=== PATIENT | male | born 1950 ===

== ENCOUNTER 2019-06-08 05:25 | Inpatient (IN) | payer MEDICARE, BC ==
[~2019-06-08 05:25] MED LIST: Buffered Lidocaine 1% SYRIN* 1 ML/SYRINGE INTRADERM ONE
[2019-06-08] MEDS ORDERED: Ondansetron ODT TAB* 4 MG PO ONE (06:00)
[2019-06-08] MEDS ORDERED: Lactated Ringers 1000 ML Bag* 1,000 ML IV SCH (06:00)
[2019-06-08] MEDS ORDERED: Dexamethasone TAB* 4 MG PO ONE (06:00)
[2019-06-08] MEDS ORDERED: Famotidine IV* 10 MG/ML 2 ML (20 mg) IV ONE (06:00)
[2019-06-08] MEDS ORDERED: PROCHLORPERAZINE INJ 5 MG/ML 2 ML VIAL IV PRN (06:01)
[2019-06-08] MEDS ORDERED: Naloxone* 0.4 MG/ML 1 ML VIAL IV PRN (06:01)
[2019-06-08] MEDS ORDERED: oxyCODONE TAB* 5 MG TAB PO PRN ×2 (06:01→10:11)
[2019-06-08] MEDS ORDERED: DiMENhydriNATE IV* 50 MG/ML VIAL IV PUSH PRN (06:01)
[2019-06-08] MEDS ORDERED: ceFAZolin 2 GM PREMIX in ORs 2 GM/50 ML BAG ONE (06:20)
[2019-06-08] MEDS ORDERED: Famotidine IV* 10 MG/ML 2 ML (20 mg) ONE (06:44)
[2019-06-08] MEDS ORDERED: Dexamethasone TAB* 4 MG ONE (06:44)
[2019-06-08] MEDS ORDERED: Ondansetron ODT TAB* 4 MG ONE (06:44)
[2019-06-08] MEDS ORDERED: Bacitracin INJECTION* 50,000 UNITS ONE (06:45)
[2019-06-08] MEDS ORDERED: Bupivacaine 0.25% EPI 200,000* 30 ML SDV ONE (06:45)
[2019-06-08] MEDS ORDERED: Rocuronium* 10 MG/ML VIAL ONE (07:11)
[2019-06-08] MEDS ORDERED: fentaNYL* 50 MCG/ML 2 ML VIAL (100 MCG VIAL) ONE ×3 (07:11→10:12)
[2019-06-08] MEDS ORDERED: KETAMINE HCL* 50 MG/ML 10 ML VIAL ONE (07:11)
[2019-06-08] MEDS ORDERED: Midazolam* 1 MG/ML 5 ML VIAL (5 MG) ONE (07:11)
[2019-06-08] MEDS ORDERED: ceFAZolin VIAL(*) VIAL ONE (07:24)
[2019-06-08] MEDS ORDERED: Propofol* 10 MG/ML 20 ML BTL ONE ×2 (07:51→14:25)
[2019-06-08] MEDS ORDERED: Sugammadex * 500 MG/5 ML VIAL IV PUSH ONE (07:51)
[2019-06-08] MEDS ORDERED: Lidocaine 2% PF * 5 ML VIAL ONE ×2 (07:52→14:26)
[2019-06-08] MEDS ORDERED: Acetaminophen IV 1GM/100ML * 100 ML ONE (07:52)
[2019-06-08] MEDS ORDERED: HYDROmorphone INJ1* 1 MG/ML SYRINGE ONE ×2 (08:56→10:46)
[2019-06-08] MEDS ORDERED: hydrALAZINE IV* 20 MG/ML VIAL ONE (09:38)
[2019-06-08] MEDS ORDERED: Labetalol IV* 5 MG/ML 20 ML VIAL ONE (09:38)
[2019-06-08] MEDS ORDERED: Ondansetron INJ* 2 MG/ML VIAL IV PRN (10:11)
[2019-06-08] MEDS ORDERED: Magnesium Hydroxide LIQ* 30 ML UDC PO PRN ×2 (10:11→12:35)
[2019-06-08] MEDS ORDERED: oxyCODONE TAB* 5 MG TAB ONE (10:12)
[2019-06-08] MEDS: fentaNYL* 50 MCG/ML 2 ML VIAL (100 MCG VIAL) IV PRN ×4 (10:13→10:38)
[2019-06-08] MEDS: HYDROmorphone INJ1* 1 MG/ML SYRINGE IV PRN ×2 (10:48→10:53)
[2019-06-08] MEDS ORDERED: ALPRAZolam TAB* 0.5 MG PO PRN (12:20)
[2019-06-08] MEDS ORDERED: Docusate CAP* 100 MG PO PRN (12:35)
[2019-06-08] MEDS ORDERED: Polyethylene Glycol 3350* 17 GM PACKET PO PRN (12:35)
[2019-06-08] MEDS ORDERED: Senna TAB 8.6 mg* TAB PO PRN (12:35)
[2019-06-08] MEDS: Gabapentin CAP(*) 300 MG PO SCH (13:45)
--- NOTE | 2019-06-08 13:49 | CONS ---
CC: Dr. Brennan Zabala; Dr. Jessica Mras * CONSULTATION REPORT: DATE OF CONSULT: 06/08/19 PRIMARY CARE PROVIDER: Dr. Brennan Zabala. REQUESTING PHYSICIAN IN CONSULTATION: Dr. Jessica Mars. ATTENDING PHYSICIAN: Dr. Adalberto Davis (dictated by RANDI Turner). REASON FOR CONSULT: Co-medical management. HISTORY OF PRESENT ILLNESS: Mr. Alcala is a 69-year-old male with a past medical history of hypertension, hyperlipidemia, chronic pain, and history of lumbar surgery May 2018, who [place] [facility] L5-S1 laminotomy, foraminotomy with Dr. Mars. He has seen postoperatively in his surgical room. He complains of low back pain rated at 4/10. He continues to have right lower extremity sciatica pain, which he has had for years. He also complains of a headache, which he has intermittently chronically. PAST MEDICAL HISTORY: 1. Hypertension. 2. Hyperlipidemia. 3. History of headaches. 4. History of vertigo. 5. GERD. 6. Anxiety. 7. Chronic pain. PAST SURGICAL HISTORY: Laminectomy, appendectomy, tonsillectomy. HOME MEDICATIONS: 1. Alprazolam 0.5 mg p.o. once p.r.n. anxiety prior to flying. 2. Atorvastatin 20 mg p.o. at bedtime. 3. Baclofen 10 mg p.o. at bedtime. 4. CBD oil 10 mg p.o. b.i.d. 5. Gabapentin 1200 mg q.a.m. and at 1300 hours, 600 mg at bedtime. 6. Ibuprofen 200 mg p.o. q.a.m. 7. Lisinopril 10 mg p.o. at bedtime. 8. Magnesium 0.25 teaspoons p.o. q.a.m. 9. Mirtazapine 15 mg p.o. at bedtime. 10. Naltrexone 4.5 mg p.o. q.a.m. 11. Omeprazole 20 mg p.o. q.a.m. 12. Ondansetron 4 mg p.o. q.6 hours p.r.n. nausea. 13. Psyllium husk 0.4 g p.o. b.i.d. DRUG ALLERGIES: BACITRACIN, NEOMYCIN, POLYMYXIN, rash; SIMVASTATIN, diarrhea. FAMILY HISTORY: Father at the age of 70 from an GA. Mother at the age of 41 from intestinal cancer. No family history of diabetes mellitus or CVA. SOCIAL HISTORY: The patient quit smoking approximately 25 years ago. Prior to that, he smoked for 10 pack years. He drinks 1 to 2 alcoholic beverages per day. He does not use any illicit drugs. He is retired. He is . In the event that he is unable to make his own medical decisions, he has appointed his , Margarita Alcala to be his surrogate decision maker. REVIEW OF SYSTEMS: A 14-point review of systems has been performed and all the pertinent positives and negatives are in the HPI, all other systems are negative. PHYSICAL EXAM: General: Mr. Alcala is a well-developed, well-nourished, slightly overweight, 69-year-old white male who is sitting up in bed. He appears to be in no acute distress. He moves with very mild discomfort. Breathing comfortably on room air. HEENT: PERRL. EOMI. Visual martin grossly intact. Sclerae are nonicteric without injection. Hearing is grossly intact. Oral mucous membranes are moist. There are no lesions. The pharynx is clear. The tongue is at midline. Palate elevates symmetrically. There is no exudates or erythema in the posterior pharynx. Cardiovascular: Regular rate and rhythm with S1, S2 present without murmurs, rubs, clicks, or gallops. There is no JVD. There is no peripheral edema. Pulmonary: Symmetrical chest expansion without use of accessory muscles. Clear to auscultation bilaterally without rhonchi, wheezes, or rales. Abdomen: Bowel sounds in all quadrants. Soft, nontender to palpation. Musculoskeletal: Full range of motion without pain or deformity. The right lateral lumbar surgical area was clean, dry, and intact; dressing in place. The patient is able to wiggle digits distally. Sensation is equal and intact distally. Neuro: The patient is awake. He is alert and oriented x3 with cranial nerves II through XII grossly intact. ASSESSMENT AND PLAN: Mr. Alcala is a 69-year-old male with a past medical history of hypertension, hyperlipidemia, chronic pain, who [place] [facility] [place] an elective L5-S1 laminotomy, foraminotomy. He will be admitted for: 1. L5-S1 laminotomy, foraminotomy. Management per Neurosurgery. Continue pain management. Add on bowel regimen. Activity, out of bed with assistance. Lumbar imaging to be done in the morning. PT has been ordered. 2. Hypertension. Continue lisinopril and hold for SBP less than 100. 3. Hyperlipidemia. Continue atorvastatin. 4. Gastroesophageal reflux disease. Continue omeprazole. 5. Chronic pain. Continue baclofen, gabapentin. Hold ibuprofen. 6. Code status: Full code. 7. DVT prophylaxis: SCDs. TIME SPENT: Approximately 35 minutes was spent on this consultation, greater than half that time was spent [id number] with the patient and his obtaining history, performing physical, and reviewing the plan of care. The case has been discussed with my attending, Dr. Davis, who is in agreement with the plan of care. RANDI MORRIS [id number]/[facility] #: [id number] NATALIA
[2019-06-08] MEDS: Acetaminophen TAB* 325 MG PO PRN ×2 (13:52→19:54)
[2019-06-08] MEDS: oxyCODONE TAB* 5 MG TAB PO PRN ×2 (13:52→19:55)
--- NOTE | 2019-06-08 16:10 | CONSULT ---
Consult Consult: June 08, 2019 INPATIENT PAIN CONSULTATION Ney Alcala is a 69 year old male. He was pretty healthy. About 10 years ago, he was a runner and developed pain down his right leg. It persisted, nd he tried physical therapy and chiropractic and lumbar traction. He had an MRI of his lumbar spine. He tried LESIs which worked for about 6 years and then they stopped working. He had surgery in [place] in May,, a right L4 minimally invasive laminectomy. After the surgery, his pain was unchanged. He tried two more LESIs which did not help. He and his relocated to [place]. He eventually saw Dr. Mars after relocating. He had an MRI of his lumbar spine and an EMG of his lower extremities, flexion and extension x-rays. He was admitted to [facility] today and underwent a right L5/S1 laminotomy and foraminotomy. He had trouble with insomnia after his last surgery, did not like Tramadol, morphine made him nauseated, dialudid and hydrocodone kept hiim from sleeping PAST MEDICAL HISTORY: Headaches, appendectomy Allergies Allergy/AdvReac Type Severity Reaction Status Date / Time bacitracin Allergy Intermediate Rash Verified 06/08/19 06:03 [From Neosporin ([id number])] neomycin Allergy Intermediate Rash Verified 06/08/19 06:03 [From Neosporin ([id number])] polymyxin B Allergy Intermediate Rash Verified 06/08/19 06:03 [From Neosporin ([id number])] simvastatin [From Zocor] AdvReac Intermediate Diarrhea Verified 06/08/19 06:03 Current Medications Acetaminophen (Tylenol Tab*) 650 mg PO Q4H PRN PRN Reason: MILD PAIN or TEMP > 100.4 Last Admin: 06/08/19 13:52 Dose: 650 mg Atorvastatin Calcium (Lipitor*) 20 mg PO BEDTIME YUKI Baclofen (Lioresal Tab*) 10 mg PO BEDTIME YUKI Docusate Sodium (Colace Cap*) 100 mg PO BID PRN PRN Reason: CONSTIPATION Gabapentin (Neurontin Cap(*)) 1,200 mg PO BID@0900,1300 YUKI Last Admin: 06/08/19 13:45 Dose: 1,200 mg Gabapentin (Neurontin Cap(*)) 600 mg PO BEDTIME YUKI Lisinopril (Prinivil Tab*) 10 mg PO BEDTIME YUKI Magnesium Hydroxide (Milk Of Magnesia Liq*) 30 ml PO DAILY PRN PRN Reason: CONSTIPATION Magnesium Hydroxide (Milk Of Magnesia Liq*) 30 ml PO BID PRN PRN Reason: CONSTIPATION Ondansetron HCl (Zofran Inj*) 4 mg IV Q6H PRN PRN Reason: NAUSEA/VOMITING Oxycodone HCl (Roxycodone Tab*) 5 mg PO Q4H PRN PRN Reason: moderate pain Oxycodone HCl (Roxycodone Tab*) 10 mg PO Q4H PRN PRN Reason: PAIN - SEVERE Last Admin: 06/08/19 13:52 Dose: 10 mg Pantoprazole Sodium (Protonix Tab*) 40 mg PO QAM YUKI Polyethylene Glycol/Electrolytes (Miralax*) 17 gm PO DAILY PRN PRN Reason: CONSTIPATION Psyllium Hydrophilic Mucilloid (Metamucil Charanjit*) 1 pkt PO BID YUKI Senna (Senokot 8.6 Mg Tab*) 1 tab PO BEDTIME PRN PRN Reason: CONSTIPATION SOCIAL HISTORY: non smoker, daily drinker, denies illicit drug use Vital Signs Temp Pulse Resp BP Pulse Ox 97.9 F 104 18 149/84 94 06/08/19 13:56 06/08/19 13:56 06/08/19 13:56 06/08/19 13:56 06/08/19 13:56 EXAM: LUNGS: Clear anteriorly HEART: reg rhythm ABDOMEN: Soft EXTREMITIES: Normal tone NEUROLOGIC: A&O. Able to move legs without focal weakness ASSESSMENT: 1. Right L5/S1 laminotomy, foraminotomy, discectomy 2. Sciatica down right leg PLAN: There are not a lot of opioid options left if oxycodone is poorly tolerated. (Morphine, tramadol, hydrocodone and hydromorphone were not well tolerated) Will continue Percocet and see how he does and how well he sleeps tonight.
--- NOTE | 2019-06-08 16:29 | OP ---
DATE OF SURGERY: 06/08/19 - ROOM #353 DATE OF : 50 SURGEON: Jessica Mars MD. DEVULCANIZER CHARGER: KHADRA Nelson. The case was done with the assistance of KHADRA because of the complexity of the case. ANESTHESIA: General PRE-OP DIAGNOSIS: Right L5-S1 lateral stenosis. POST-OP DIAGNOSES: Right L5-S1 lateral stenosis, herniated nucleus pulposus. PROCEDURE PERFORMED: Right L5-S1 laminotomy, foraminotomy, and diskectomy. ESTIMATED BLOOD LOSS: 10 cc. COMPLICATIONS: None. INDICATIONS: The patient is a very pleasant 69-year-old gentleman who had a recent right L4-5 [place]. The patient has persistent complaints of pain. CT myelogram revealed significant right L5-S1 lateral facet stenosis and possible herniated nucleus pulposus. Because of the failure of improvement with conservative treatment modalities, he was offered the option of surgical intervention. After explaining the expectations, limitations , and possible complication of the procedure with the patient and his with complications including but not limited to bleeding, infection, risk of injury to adjacent structures, coma, paralysis, , need for additional procedure, anesthesia risks, stroke, blindness, cancer, instability, adjacent level disease , spinal fluid leak, injury to intraabdominal organs, injury to large vessels, need for additional procedures, need for tracheostomy, gastrostomy, and anesthesia risk, the patient was agreeable to proceed with surgery. Informed consent was obtained. The patient understood that his condition may not improve and in fact may get worse after the surgery and that he may need to have additional procedures in the future. He also understood that operative plan may be modified according to intraoperative findings and conditions and that the case may be abandoned or done in more than one stage. He also understood that he may require prolonged hospitalization, prolonged ICU stay, or prolonged rehabilitation. DESCRIPTION OF PROCEDURE: The patient was brought to the operating room and was placed under general anesthesia by the anesthesia team. He was carefully positioned prone on the Arun frame on the Brant table and all bony prominences were meticulously padded. His skin was prepped and draped in standard fashion. His previous incision was identified, and under fluoroscopic guidance, the L5 disk space level was identified. It was very close to his previous surgical wound incision, and after infiltrating the skin with local anesthetic, the previous incision was incised and slightly extended. The incision was carried down with Bovie cautery and the dorsal facet was divided with #10 surgical blade. With the use of dilator, the [employer] tubular retractor system was inserted and placed over the right L5 ashvin lamina and the L5-S1 facet. Intraoperative fluoroscopic imaging confirmed appropriate placement of the tubular retractor in the correct physical level. A second surgical time- out was performed at that time. The intraoperative microscope was brought into the field, and after complete exposure of the right L5 ashvin lamina, right L5 pars, and right L5-S1 facet, a high-speed drill and Kerrison punches were used to perform a laminotomy as well as partial medial facetectomy as well as an extensive foraminotomy. Significant compression of the S1 nerve root on the lateral recess was encountered as expected from preoperative imaging. Foraminotomy was performed. The foramina was found to be extremely patent. Then attention was brought to remove the rest of the ligamentum flavum with Kerrison punches and identified the thecal sac. The S2 nerve root was also identified aligned medially to the S1 nerve root as expected from the preoperative imaging. Then inspection of the disk space confirmed the presence of herniated nucleus pulposus and a diskectomy was carried out after incising the annulus pulposus with 15 surgical blade. The diskectomy was carried out with a series of pituitary rongeurs. At the end of the diskectomy and foraminotomy, the thecal sac and the nerve roots were found to be free of any pressure phenomenon. After copious irrigation, confirmation of meticulous hemostasis and meticulous inspection, the tubular retractor system was removed and the wound was closed by layers with 0 interrupted Vicryl to approximate the dorsal fascia and 2-0 inverted interrupted Vicryl sutures to approximate the subcutaneous tissue. The skin was then covered with Dermabond and sterile dressings. At the end of the procedure, all counts were reported to be correct. The patient remained hemodynamically stable throughout the case. She was then turned supine, was extubated and was transferred to Recovery in excellent condition. [id number]/[facility] #: [id number] NATALIA
[2019-06-08] MEDS: Psyllium PAK PO SCH (20:47)
[2019-06-08] MEDS: [UNRECOGNIZED DRUG - MIXTURE] BOTH EYES SCH (20:56)
[2019-06-08] MEDS ORDERED: Atorvastatin* 20 MG TAB PO SCH (21:00)
[2019-06-08] MEDS ORDERED: Lisinopril TAB* 10 MG PO SCH (21:00)
[2019-06-08] MEDS ORDERED: Gabapentin CAP(*) 300 MG PO SCH (21:00)
[2019-06-08] MEDS ORDERED: Baclofen TAB* 10 MG PO SCH (21:00)
[2019-06-09] MEDS: Acetaminophen TAB* 325 MG PO PRN ×3 (04:05→16:35)
[2019-06-09] MEDS: oxyCODONE TAB* 5 MG TAB PO PRN ×3 (04:06→16:32)
[2019-06-09 06:12] LABS: Hematocrit 42 % (42-52); Hemoglobin 14.1 g/dL (14.0-18.0); Mean Corpuscular HGB Conc 34 g/dL (31-36); Mean Corpuscular Hemoglobin 30 pg (27-31); Mean Corpuscular Volume 88 fL (80-94); Mean Platelet Volume 8.7 fL (7.4-10.4); Platelet Count 176 10^3/uL (150-450); Red Blood Count 4.71 10^6 /uL (4.18-5.48); Red Cell Distribution Width 13 % (10-15); White Blood Count 15.6 10^3/uL (3.5-10.8)
[2019-06-09 06:22] LABS: Albumin 3.9 g/dL (3.2-5.2); Calcium 9.3 mg/dL (8.6-10.3); Potassium 4.1 mmol/L (3.5-5.0); Total Bilirubin 0.5 mg/dL (0.2-1.0)
[2019-06-09 06:28] LABS: Albumin/Globulin Ratio 1.8 (1-3); BUN/Creatinine Ratio 13.5 (8-20); EGFR African American 102.6 (>60); EGFR Non-African American 84.8 (>60); Globulin 2.2 g/dL (2-4); Total Protein 6.1 g/dL (6.4-8.9)
[2019-06-09] MEDS: Psyllium PAK PO SCH (08:16)
[2019-06-09] MEDS: Gabapentin CAP(*) 300 MG PO SCH ×3 (08:17→13:24)
[2019-06-09] MEDS: [UNRECOGNIZED DRUG - MIXTURE] BOTH EYES SCH ×2 (08:18→13:08)
[2019-06-09] MEDS ORDERED: Pantoprazole TAB * 40 MG TAB PO SCH (09:00)
[2019-06-09 11:38] VITALS: BP 122/64
--- NOTE | 2019-06-09 18:32 | PN ---
Progress Note - Progress Note Date of Service: 06/09/19 SOAP: Subjective: [] No events ON. Tolerated procedure well yesterday. Ambulates, Tolerates PO well, Voids. Wants to go home. Objective: []VSS, Afebrile AAOx3 JIN, CN II-XII grossly intact Motor 5/5 all extremities Sensory grossly intact to light touch Assessment: []69 yom POD#1 MIS Rt L5-S1 Laminotomy, foraminotomy and discectomy. Plan: []Monitor VS, Neurochecks DC today. Full instructions wee given to patient. Follow up in 7-10 days in office for wound check. Appreciate IM care. Debbie Mars MD
--- NOTE | 2019-06-09 22:47 | DS ---
CC: Dr. Mars; Dr. Zabala.* DISCHARGE SUMMARY: DATE OF ADMISSION: 06/08/19 DATE OF DISCHARGE: 06/09/19 ATTENDING PHYSICIAN WHILE IN THE HOSPITAL: Dr. Adalberto Davis* (dictated by RANDI Lyons). NEUROSURGEON: Dr. Mars. PRIMARY CARE PROVIDER: Dr. Zabala. PRIMARY DIAGNOSIS: Right lower extremity radiculopathy, status post L5-S1 laminotomy and foraminotomy. PAST MEDICAL HISTORY: 1. Hypertension. 2. Hyperlipidemia. 3. History of headaches. 4. Vertigo. 5. GERD. 6. Anxiety. 7. Back pain. PROCEDURES WHILE IN THE HOSPITAL: L5-S1 laminotomy and foraminotomy on with Dr. Mars. Please see operative report for details. PERTINENT LABORATORY DATA: White blood cell count 15.3 on the day of discharge and hemoglobin 14.1 and hematocrit of 42, platelet count of 176. DISCHARGE INSTRUCTIONS: The patient should follow up with Dr. Mars in office in 10 days. He additionally should follow up with his primary care provider regarding his hospitalization in approximately a week. At this time it would be beneficial if repeat CBC could be performed to evaluate if his leukocytosis has resolved. HISTORY OF PRESENT ILLNESS/HOSPITAL COURSE: Mr. Alcala is a 69-year-old male with the past medical history significant for right-sided lower extremity radiculopathy, hypertension, hyperlipidemia, GERD, anxiety; who presents to [facility] for elective L5-S1 laminotomy and foraminotomy by Dr. Mars. The patient had this procedure performed on 06/08/19 and Hospital Medicine was consulted for comanagement of chronic medical condition. The procedure went well and the patient was able to ambulate around the medical floor on the date of discharge. He was evaluated by Physical Therapy who found the patient to not need any skilled services at that time and his pain was under good control with the use of p.r.n. oxycodone. He at baseline would prior to surgery feel pain down his right lower extremity after standing for approximately 15 minutes. At the time of my evaluation he had not yet stood for that long; however, had not yet experienced any radiculopathy symptoms by the time of my evaluation; no weakness, numbness, or tingling of his extremities ; or fever or chills were experienced. He was evaluated by Dr. Mars on the day of discharge and deemed safe to be discharged home. PHYSICAL EXAMINATION ON THE DAY OF DISCHARGE: General: Elderly white male who appears younger than his stated age, lying up in the hospital bed, appearing comfortable, in no acute distress. at bedside. HEENT: Eyes: PERRLA, sclerae anicteric. Neck: Supple. Lungs: Clear to auscultation throughout. Cardio: Regular rate and rhythm without murmurs, rubs, or gallops. Abdomen: Soft, nontender, and nondistended. Extremities: No clubbing, cyanosis, or edema. Neuro: The patient is alert and oriented x3. Able to move all extremities. Strength is 5/5 in all extremities. Sensation to light touch grossly intact in bilateral lower extremities. DISCHARGE INSTRUCTIONS: Diet. Regular unrestricted diet. Activity: The patient is to avoid bending, lifting, twisting, and driving. The patient is to keep the bandage clean, and dry. He may shower the day after tomorrow. He is to avoid bath in hot tubs. He is to return to the emergency department if he is noticing purulent drainage or excessive bleeding from the wound site; fever; chills; loss of control of bowel or bladder; numbness, weakness, or tingling in the extremities; other concerning symptoms. I would like to include the other instructions that I already mentioned about followup with Dr. Mars and his primary care. CONDITION ON DISCHARGE: Stable. DISPOSITION: Home. DISCHARGE MEDICATIONS: New medications: 1. Oxycodone 5 mg to 10 mg p.o. q.4 hours p.r.n. severe pain, maximum daily dose 10 tabs. 2. MiraLAX 17 g p.o. daily p.r.n. constipation. 3. Colace 100 mg p.o. b.i.d. p.r.n. constipation. 4. Tylenol 650 mg p.o. q.4 hours p.r.n. pain. Continued home medications: 1. Metamucil 0.4 g p.o. b.i.d. 2. Lisinopril 10 mg p.o. at bedtime. 3. Omeprazole 20 mg p.o. daily. 4. Zofran 4 mg p.o. q.6 hours p.r.n. nausea or vomiting. 5. Gabapentin 1200 mg p.o. q.a.m., 1200 mg at 1300 hours, 600 mg at bedtime. 6. Ibuprofen 200 mg p.o. q.a.m. 7. Magnesium liquid 0.25 teaspoons p.o. q.a.m. 8. Remeron 15 mg p.o. at bedtime. 9. Naltrexone 4.5 mg p.o. q.a.m. 10. Xanax 0.5 mg p.o. once p.r.n. flying on airplane. 11. Lipitor 20 mg p.o. at bedtime. 12. Baclofen 10 mg p.o. at bedtime. 13. CBD oil 10 mg p.o. b.i.d. TIME SPENT: Approximately 35 minutes was spent on this discharge, approximately half this time was spent at the bedside evaluating the patient and discussing the plan of care. RANDI LYONS [id number]/[facility] #: [id number] NATALIA
== END 2019-06-09 17:45 | disposition home or self-care (01) | DRG 520 ==
LOC: OR 05:25 → SSU 10:11
PROVIDERS: ADMIT Neurological Surgery; ATTEND Internal Medicine
PROC: 01NB0ZZ Release Lumbar Nerve, Open Approach (ICD-10-PCS; 2019-06-08)
PROC: 0SB40ZZ Excision of Lumbosacral Disc, Open Approach (ICD-10-PCS; principal; 2019-06-08 07:30)
DX: M48.07 Spinal stenosis, lumbosacral region (principal); I10 Essential (primary) hypertension; M51.17 Intervertebral disc disorders with radiculopathy, lumbosacral region; E78.5 Hyperlipidemia, unspecified; K21.9 Gastro-esophageal reflux disease without esophagitis; G89.29 Other chronic pain; F41.9 Anxiety disorder, unspecified; Z88.1 Allergy status to other antibiotic agents; Z88.8 Allergy status to other drugs, medicaments and biological substances; Z88.6 Allergy status to analgesic agent; Z87.891 Personal history of nicotine dependence; Z79.899 Other long term (current) drug therapy
CPT/HCPCS: 36415; 76000; 80053; 85027; A9270-GY; J0360; J0690; J1170; J2250; J2704; J3010; J8540